=== PATIENT | male | born 1965 | race Caucasian/White ===

== ENCOUNTER 2019-05-20 05:15 | Inpatient (IN) | payer BC ==
[2019-05-20] VITALS (11 sets, daily range): BP systolic 107–138; BP diastolic 69–93
[~2019-05-20] VITALS: Ht 185.4 cm; Wt 115.7 kg
[~2019-05-20 05:15] MED LIST: LISINOPRIL30 MG ORAL
[2019-05-20] MEDS ORDERED: LR 1000ml 1,000 ML IVLG SCH (06:46)
--- NOTE | 2019-05-20 06:48 | Anethesia Preoperative Eval ---
Anesthesia Pre-op PMH/ROS General Date of Evaluation: May 20, 2019 Time of Evaluation: 07:31 Anesthesiologist: Dayanara ASA Score: ASA 3 Mallampati Score Class I : Soft palate, uvula, fauces, pillars visible Class II: Soft palate, uvula, fauces visible Class III: Soft palate, base of uvula visible Class IV: Only hard plate visible Mallampati Classification: Class III Surgeon: Alter Diagnosis: Hidden Penis Surgical Procedure: Suprapubic Drmatolipectomy and Tacking Anesthesia History: none Family History: no anesthesia problems Allergies: Coded Allergies: No Known Allergies (Unverified , 05/19/19) Medications: see eMAR Patient NPO?: Yes NPO Date: May 19, 2019 NPO Time: 2100 Past Medical History Cardiovascular: Reports: HTN Other: obesity - BMI 35 PSxH Narrative: Facial Reconstruction, R hand Tumor SX, Bilateral Shoulder Sx Anesthesia Pre-op Phys. Exam Physician Exam Last Vital Signs Date Time Temp Pulse Resp B/P (MAP) Pulse Ox O2 Delivery O2 Flow Rate FiO2 05/20/19 05:55 Room Air 05/20/19 05:50 97.5 76 18 132/81 (98) 100 Constitutional: NAD Neurologic: CN 2-12 intact Cardiovascular: RRR Respiratory: CTA Gastrointestinal: S/NT/ND Airway Exam Mallampati Score: Class III MO: full ROM: limited Teeth: intact Anesthesia Pre-op A/P Risk Assessment & Plan Assessment: ASA 3 Plan: GA, SED, GlideScope Go Status Change Before Surgery: No Pre-Antibiotics Dru Grams Ancef IV Given Within 1 Hr of Incision: Yes Time Given: 07:51 Claudy Nichole MD May 20, 2019 06:48
[2019-05-20] MEDS ORDERED: Rocuronium Bromide 50mg/5ml Inj IV ONE (06:50)
[2019-05-20] MEDS ORDERED: Lidocaine 1% MPF 10mg/ml 5ml ONE ×2 (06:53→12:19)
[2019-05-20] MEDS ORDERED: Lidocaine 1% Plain 30 ml INJ ONE ×4 (06:53→14:30)
[2019-05-20] MEDS ORDERED: Sodium Chloride 10ml vial INJ ONE (06:53)
[2019-05-20] MEDS ORDERED: Dexamethasone 4mg/ml vial ONE (06:53)
[2019-05-20] MEDS ORDERED: fentaNYL 100 mcg/2 mL ONE ×5 (06:54→14:37)
[2019-05-20] MEDS ORDERED: Ketamine 500mg Inj ONE (06:54)
[2019-05-20] MEDS ORDERED: Acetaminophen (Non formulary) 100 ML IV ONE (07:00)
[2019-05-20] MEDS ORDERED: Ketorolac 30mg Inj IV PRN ×4 (07:00→16:00)
[2019-05-20] MEDS ORDERED: Labetalol 5mg/ml 20ml vial IV PRN ×2 (07:00→16:00)
[2019-05-20] MEDS ORDERED: DiphenhydrAMINE 50mg/ml Inj IVP PRN ×3 (07:00→16:30)
[2019-05-20] MEDS ORDERED: Atropine Sulfate 0.4mg/ml inj IVP PRN ×2 (07:00→16:00)
[2019-05-20] MEDS ORDERED: oxyCODONE HCL/Acetaminophen 5/325mg ORAL PRN (07:00)
[2019-05-20] MEDS ORDERED: LORazepam Inj 2mg/ml 1ml IV PRN ×2 (07:00→16:00)
[2019-05-20] MEDS ORDERED: Meperidine 50mg/ml Inj(FOR RIGORS ONLY) IVP PRN ×2 (07:00→16:00)
[2019-05-20] MEDS ORDERED: Propofol 1,000mg/ 100ml btl IV ONE (07:00)
[2019-05-20] MEDS ORDERED: Hydromorphone 0.5mg/0.5ml inj IVP PRN ×2 (07:00→16:00)
[2019-05-20] MEDS ORDERED: HYDROcodone/Acetamin 5/325 tab ORAL PRN (07:00)
[2019-05-20] MEDS ORDERED: Midazolam 2mg/2ml Inj IVP PRN ×2 (07:00→16:00)
[2019-05-20] MEDS ORDERED: fentaNYL 100 mcg/2 mL IV PRN ×2 (07:00→16:00)
[2019-05-20] MEDS ORDERED: HYDROcodone/Acetamin 7.5/325 tab ORAL PRN (07:00)
[2019-05-20] MEDS ORDERED: Metoclopramide 10mg/2ml Inj IVP PRN ×2 (07:00→16:00)
[2019-05-20] MEDS ORDERED: Muri-Lube ONE (07:15)
[2019-05-20] MEDS ORDERED: EPINEPHrine 1mg/1ml Amp ONE (07:15)
[2019-05-20] MEDS ORDERED: NeoSporin Gu Irrig 1ml Amp IRRIG ONE (07:16)
[2019-05-20] MEDS ORDERED: Bacitracin 50000 Units Vial ONE (07:16)
[2019-05-20] MEDS ORDERED: Lidocaine 1% 10mg/ml/EPI 0.01mg/ml 50ml INJ ONE (07:16)
[2019-05-20] MEDS ORDERED: Bupivacaine w/Epi 0.5% 30ml Vial INJ ONE (07:16)
--- NOTE | 2019-05-20 07:29 | Pre-Procedure Note/Attestation ---
Pre-Procedure Note/Attestation Complete Prior to Procedure Planned Procedure: not applicable Procedure Narrative: Correction of buried penis and Release of scar tissue. Possible scrotal flaps. Correction of buried penis Indications for Procedure Pre-Operative Diagnosis: Buried penis Attestation I attest that I discussed the nature of the procedure; its benefits; risks and complications; and alternatives (and the risks and benefits of such alternatives ), prior to the procedure, with the patient (or the patient's legal sales representative electric service). I attest that, if there was a reasonable possibility of needing a blood transfusion, the patient (or the patient's legal sales representative electric service) was given the [facility] standardized written summary, pursuant to the Thee Se Blood Safety Act ([place] Health and Safety Code # 1645, as amended). I attest that I re-evaluated the patient just prior to the surgery and that there has been no change in the patient's H&P, except as documented below: Caden Cornelius MD May 20, 2019 07:29
[2019-05-20] MEDS ORDERED: NS Irrig 1000ml IRRIG ONE (08:00)
[2019-05-20] MEDS ORDERED: LR 1000ml IVLG ONE (08:00)
--- NOTE | 2019-05-20 08:10 | Immediate Post-Op Evaluation ---
Immediate Post-Op Evalulation Immediate Post-Op Evalulation Procedure: Suprapubic Dermatolipectomy And Tacking Date of Evaluation: May 20, 2019 Time of Evaluation: 16:47 IV Fluids: 1600 LR Blood Products: 0 Estimated Blood Loss: 100 Urinary Output: 600 Blood Pressure Systolic: 127 Blood Pressure Diastolic: 79 Pulse Rate: 91 Respiratory Rate: 16 O2 Sat by Pulse Oximetry: 100 Temperature (Fahrenheit): 98 Pain Score (1-10): 2 Nausea: No Vomiting: No Complications 0 Patient Status: awake, reacts, patent, extubated, none Hydration Status: adequate Dru Gram Ancef IV Given Within 1 Hr of Incision: Yes Time Given: 07:51 Claudy Nichole MD May 20, 2019 08:10
--- NOTE | 2019-05-20 08:10 | 48 Hour Post Anesthesia Eval ---
Post Anesthesia Evaluation Procedure: Suprapubic Dermatolipectomy And Tacking Date of Evaluation: May 20, 2019 Airway: patent Nausea: No Vomiting: No Pain Intensity: 2 Hydration Status: adequate Cardiopulmonary Status: Stable Mental Status/LOC: patient returned to baseline Follow-up Care/Observations: 0 Post-Anesthesia Complications: 0 Follow-up care needed: ready to discharge Claudy Nichole MD May 20, 2019 08:10
--- NOTE | 2019-05-20 09:04 | NUR ---
CASE MANAGEMENT: REVIEW 53 YR OLD MALE HERE FOR ELECTIVE SURGERY SI: HIDDEN PENIS 97.5 76 18 132/81 100% RA IS:TO SURGERY- EXPLORATION OF PENIS WITH POSSIBLE RELEASE : CURRENTLY IN SURGERY
[2019-05-20] MEDS ORDERED: Neostigmine 1mg/ml 10ml Inj ONE (11:05)
[2019-05-20] MEDS ORDERED: Glycopyrrolate 0.2mg/ml 1ml Vial ONE (11:05)
[2019-05-20] MEDS ORDERED: Propofol 200mg/20ml IV ONE (14:30)
[2019-05-20] MEDS ORDERED: Phenylephrine 10mg/ml Vial ONE (15:05)
[2019-05-20] MEDS ORDERED: Naloxone 0.4mg/ml Inj IVP PRN (16:30)
[2019-05-20] MEDS ORDERED: PCA Education Pamphlet MISC ONE (16:30)
[2019-05-20] MEDS ORDERED: LORazepam 1mg tab ORAL PRN (16:30)
[2019-05-20] MEDS ORDERED: Rate Change PCA 1 Each MISC PRN (16:30)
[2019-05-20] MEDS ORDERED: PCA HYDROmorphone 1mg/ml 30 ML IV PRN (16:30)
[2019-05-20] MEDS ORDERED: HYDROcodone/Acetamin 10/325 tab ORAL PRN (16:45)
--- NOTE | 2019-05-20 16:46 | Operative Note - PDOC ---
Operative Note Operative Note Date of Operation/Procedure: May 20, 2019 Chief Complaint: Buried penis Pre-op Diagnosis: Buried penis Procedure: Correction of buried penis, Lysis of fibrotic adhesions, penile plication, penoscrotal transposition flaps Post-op Diagnosis: Same plus dorsal penile curvature Post-op Diagnosis: same as pre-op plus - dorsal penile curvature Surgeon: Caden Cornelius Anesthesia: general Specimen: none Complications: none Condition: stable Estimated Blood Loss: minimal Drains: KISHAN Implant(s) used?: No Caden Cornelius MD May 20, 2019 16:46
--- NOTE | 2019-05-20 17:45 | NUR ---
NURSE NOTES: REC'D FROM PACU SP CORRECTION OF BURIED PENIS,LYSIS OF FIBROTIC ADHESION,PENILE PLICATION PENUSCROTAL TRANSPOSITION FLAP. AWAKE/ALERT. PENILE DRESSING DRY AND INTACT. ICE PACK ON.F/C IN PLACE DRAINING YWLLOW URINE. KISHAN IN PLACE DRAINING SEROUS DRAINAGE. IVF INFUSING. V/S TAKEN. PAIN SCALE 3-4/10. ON LODGING MANAGER DILAUDID. INSTRUCTED TO PUSH PAIN BUTTON NEEDED FOR PAIN. IN NO DISTRESS.
--- NOTE | 2019-05-20 18:41 | NUR ---
NURSE NOTES: Spoke to regarding home medication and new order received. Order read back and carried out.
[2019-05-20] MEDS ORDERED: D5 1/2NS w/KCl 20mEq 1,000 ML IV SCH (19:00)
--- NOTE | 2019-05-20 19:00 | NUR ---
NURSE NOTES: QUIET IN BED. IN NO APPARENT DISTRESS.
[2019-05-20] MEDS: PCA shift volume MISC SCH (19:25)
--- NOTE | 2019-05-20 19:25 | NUR ---
NURSE NOTES: Report taken from GURDEEP Hutchins. Patient is awake and in bed, family at bedside. A&Ox4. No signs of distress on room air, N/C at bedside. Patient has personal CPAP machine. Skin intact, surgical site c/d/i, continue to monitor. site Lt Hand c/d/i and patent, running D51/2+20KCl @ 125mls/hr. Lyons draining to gravity, light yellow fluid. Bed in lowest position, call light within reach. Addendum: 05/21/19 at 0623 by Dylan Canchola RN Patient has KISHAN drain, RL Abdomen, draining serosangineous fluid.
--- NOTE | 2019-05-20 19:31 | NUR ---
HAND-OFF: Report given to Zeny SINGER RN.
[2019-05-20] MEDS ORDERED: ceFAZolin sod 1 GM in D5W 55 ML IV SCH (20:00)
[2019-05-20] MEDS: ceFAZolin sod 1 GM in D5W 55 ML IV SCH (22:46)
[2019-05-21] VITALS: BP 132/70
--- NOTE | 2019-05-21 | Operative Note - Dictated ---
DATE OF OPERATION: 05/20/2019 PREOPERATIVE DIAGNOSES: 1. 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 2. Probable dorsal penile skin insufficiency. POSTOPERATIVE DIAGNOSES: 1. 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 2. Probable dorsal penile skin insufficiency. 3. Dorsal penile curvature. OPERATION: 1. Release of severe scar contractures at the penile base extending throughout the dorsum of the penis. 2. Ventral penile plication. 3. Penopubic tacking. 4. Penile coverage with penoscrotal transposition flaps. SURGEON: Caden Cornelius M.D. ANESTHESIA: General. INDICATIONS: The patient is a 53-year-old male that had an Elist implant approximately 5 years ago. He subsequently got an infection with healing by secondary intention at the penopubic junction. The wound was open at the penopubic junction and healed over time. The patient states that his penile length was 5 to 6 inches prior to any surgery. However, now his penis is unusable and only 1 to 2 inches. Erections cause pain because of the scar tissue. Physical exam reveals some mild pubic ptosis. There is a transverse lower pubic scar. He has severe fibrosis extending from the pubic scar to the dorsal shaft of the penis. The penis is severely buried and cannot be pulled out more than an inch or so. There is question if the patient has adequate dorsal penile skin. He has adequate ventral penile skin. The patient was told that it is highly unlikely that he would regain his previous penile length. He was also told that penile coverage would very possibly be done with penoscrotal transposition flaps. OPERATION IN DETAIL: The patient was given general anesthesia. He was placed in supine position, prepped and draped in usual manner. The patient's previous transverse incision was almost completely excised. The incision was carried down to the very firm hard scar tissue. Scar tissue was then followed dorsally along the dorsum of the penile skin. It was very difficult to get a plane between the scar tissue and Mata fascia. At the penopubic junction, the scar tissue was cut and a plane was obtained from the Mata fascia. Blunt sharp dissection was then done to try to free up the scar tissue from the Mata fascia. This was able to be done until approximately the distal third of the penis. The scar was so intimately attached to the dorsal neurovascular bundles that was felt that any dissection to remove the tissue would very possibly injure the patient's dorsal nerves. The penis was freed laterally. There was a firm mass of Peyronie like tissue extending along the 10 to 2 o'clock position of the dorsum of the penis at approximately the distal two-third manju. As previously stated, this could not be dissected off the Mata fascia nerves because it was too firmly attached with no plane. Scoring was done into the scar tissue and some was removed as possible, but over the dorsal midline. Any further manipulation of this firm Peyronie like plaque would result in the possibility of neurovascular damage. The patient was given a pharmacologic erection with prostaglandin E1. This helped to further release of scar tissue at the penile base and laterally. It became very obvious that the patient's penile skin was not adequate for coverage of the released penis. Therefore, a circumcision incision was made approximately 1 cm in the subcoronal region. An incision was then made along the ventral midline of the penis from the circumcision line down to the mid scrotum. Blunt sharp dissection was done to free up all the penile skin and the scrotal skin. Examination of the penis revealed that the patient had a very significant approximately 45 degree upward curvature of the penis that would cause buckling and inability to have intercourse. Therefore, the decision was made to plicate ventrally to straighten out the penis. Blunt sharp dissection was then done just lateral to the urethra through the Mata fascia ventrally around the mid portion of the penis. The neurovascular bundle was then lifted off of the tunica ventrally on the right and left side just enough for plication. The patient still had a pharmacological erection. This was augmented with an infusion of saline into the cavernosal bodies through a butterfly in the glans into the corporal bodies. The patient's dorsal curvature was very noticeable and significant. 1 cm ellipses were then taken transversely around the proximal third of the penis to straighten the penis out. The plication was done without excising any tunica and was done with interrupted buried 2-0 Ethibond sutures. This was done both on the right and left side with the ellipses plicating approximately 1 cm to 1.5 cm on each side. Once the plications were done with multiple sutures, the patient's erection was checked and he had a very straight erection. He had a little bit of some hourglass deformity, but it was not significant enough. The patient's penis was now straight with a slight 10 degree upward curve. He had no significant buckling on infusion. The Mata fascia was then closed over the repair with running and interrupted 4-0 Vicryl sutures. Attempts were made to plicate the penopubic skin down to the pubic area with 0 Prolene sutures from the pubic area through the skin of the penopubic junction back to the pubic area. However, this resulted in too much of an upward angling of the penis, so these were removed. Blunt and sharp dissection was then done to Mata fascia at the 10 o'clock and 2 o'clock position. Nerves were avoided. However, there was severe fibrosis of the Mata fascia and the dissection was extremely difficult to get through the Mata fascia through tunica. This was done as far proximally as possible to give the patient a good penopubic junction. Two sutures of 2-0 Ethibond were then taken on each side at the 10 o'clock and then up to 2 o'clock positions. With a full erection, the sutures were then taken through the subdermal tissue at the penopubic junction, respectively at the 10 o'clock and 2 o'clock positions. Upon tying all 4 of the sutures, the patient's dorsal skin was well stabilized to the tunica to give the patient a good angle and good usable penile length. There was good fat and subcutaneous tissue between the pubic symphysis and the penis. This was then closed with interrupted 3-0 Vicryl sutures. There was inadequate penile skin to cover the shaft. It was estimated that the patient's erection was approximately 4.5 inches erect and straight. The penoscrotal skin was then transposed dorsally over the dorsal shaft of the penis to create a midline scar dorsally at the 12 o'clock position. Subcutaneous tissue was closed with some interrupted 4-0 Monocryl. The skin was closed with interrupted 4-0 Monocryl. The dog-ear proximally was excised. The skin was then draped from the ventral penis circumferentially along the thacker to cover the ventral penile shaft. Incisions were made at the penoscrotal junction on each side to transpose the skin and create a Z-plasty at the penoscrotal junction. Blunt and sharp dissection was then done at just lateral to the urethra at the penoscrotal junction on each side. Two sutures of 2-0 PDS were then placed at the penoscrotal junction just lateral to the urethra and the tunica on each side. The sutures were then placed through the proximal transposed penile skin respectively on each side to give the patient a good penoscrotal junction. The ventral skin was sutured from right to left to cover the ventral penile shaft. Care was taken to make sure that there was no significant tension and was done with the penis erect. Interrupted 4-0 Monocryls were placed through the subcutaneous tissue and interrupted 4-0 Monocryls were placed in the skin both along the ventral closure and along the circumcision line. The incision had to be carried all the way into the scrotum and excess dog-ears were removed along the midline of the scrotum. This was closed with some interrupted 4-0 Monocryl sutures. The patient now had coverage of the penis with an erect length of approximately 4.5 inches. A #15 Luciano-Johns drain was then placed in the pubic area out through a separate stab incision lateral to the incision. The superior flap of subcutaneous tissue was then tracked down to the pubic area to give a slight concavity with interrupted 0 Prolene sutures. The skin was then closed with intradermal 4-0 Monocryl sutures and the skin was closed with subcuticular sutures of 4-0 Monocryl. At the conclusion of the case, the patient had a straight erection measured about 4.5 inches in erect length. The skin flaps looked healthy, but slightly congested. The erection was reversed with the intracavernosal injection of phenylephrine. A DuoDERM dressings was placed on the penis. Steri-Strips was placed on the lower pubic incision. The patient tolerated the procedure well and left the operating room in good condition. Caden Cornelius M.D. DR: ISIS JOB#: [id number] CC: DEONTE
[2019-05-21 04:00] VITALS: BP 125/73
--- NOTE | 2019-05-21 06:20 | NUR ---
NURSE NOTES: Burleson removed by RN at 0610am per MD order. Instructed patient on use of urinal at bedside. Will endorse to day shift to assist patient with ambulation to bathroom. Total burleson output overnight, 1950cc
[2019-05-21] MEDS: PCA shift volume MISC SCH (07:05)
[2019-05-21] MEDS: ceFAZolin sod 1 GM in D5W 55 ML IV SCH (07:23)
--- NOTE | 2019-05-21 07:27 | NUR ---
HAND-OFF: Report given to GURDEEP Hutchins. patient is awake and in bed, advanced diet to regular for breakfast.
--- NOTE | 2019-05-21 07:30 | NUR ---
NURSE NOTES: AWAKE/ALERT. PAIN SCALE 5/10. PENILE DRESSING DRY AND INTACT. ICE PACK ON . IN NO DISTRESS.
[2019-05-21 08:00] VITALS: BP 131/77
[2019-05-21 08:34] VITALS: BP 131/77
[2019-05-21] MEDS ORDERED: Lisinopril 10mg tab ORAL SCH (09:00)
--- NOTE | 2019-05-21 10:00 | NUR ---
NURSE NOTES: PT INSTRUCTED HOW TO EMPTY AND RECORD KISHAN OUTPUT.
--- NOTE | 2019-05-21 10:52 | NUR ---
NURSE NOTES: DISCHARGED HOME PER WHEELCHAIR ACCPD BY BROTHER IN STABLE CONDITION. DC INSTRUCTIONS GIVEN
--- NOTE | 2019-05-21 15:51 | NUR ---
*-* INSURANCE *-* ALL CLINICALS AND REVIEWS HAVE BEEN FAXED TO: [facility] OF STATE DATES APPROVED 05/20-05/27/19 CLERK OF SCALES: LOWELL CALHOUN P:[phone] F:[phone] FAX CLINICALS
--- NOTE | 2019-05-22 12:33 | Discharge Summary ---
Discharge Summary Hospital Course Date of Admission May 20, 2019 at 05:15 Date of Discharge May 21, 2019 at 11:00 Admitting Diagnosis buried penis Reason for Hospitalization: elective surgery HPI Lopez Pete is a 53 year old male who was admitted on May 20, 2019 at 05:15 for Hidden Penis Procedures s/p 05/20/[address] Cornelius 1. Release of severe scar contractures at the penile base extending throughout the dorsum of the penis. 2. Ventral penile plication. 3. Penopubic tacking. 4. Penile coverage with penoscrotal transposition flaps. Hospital Course status post surgery course of recovery uneventful initially IV fluids s/p perioperative antibiotics penile dressing dry and intact pain management was addressed , pain controlled hemodynamically stable patient initially with Lyons catheter, which discontinued in the morning after surgery patient was able to void without difficulties patient with KISHAN drain, output closely monitored; patient was taught how to care for KISHAN drain patient tolerated diet , IV fluids discontinued antiemetics were on board as needed blood pressure was managed with PABLO and remained stable bowel regimen instituted patient was stable for discharge discharge instructions provided follow up with surgeon in clinic as advised FINAL DIAGNOSES 1. 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 2. Probable dorsal penile skin insufficiency. 3. Dorsal penile curvature. 4. s/p Correction of buried penis, lysis of fibrotic adhesions, penile plication , penoscrotal transposition flaps Discharge Medications Continued Medications: Lisinopril* (Lisinopril*) 30 Mg Tablet 30 MG ORAL DAILY, TAB (This prescription has been renewed) Discharge Condition Upon Discharge: stable Discharge Disposition Patient was discharged home Discharge Instructions Discharge Instructions Special Instructions I have been assigned to complete a D/C Summary on this account. I was not involved in the patient management Sintia Watson NP May 22, 2019 12:33
== END 2019-05-21 11:00 | disposition home or self-care (01) | DRG 710 ==
LOC: SDSOVERFLO 05:15 → EDSTATUS 07:30 → 3E 17:43
PROC: 0VQS0ZZ Repair Penis, Open Approach (ICD-10-PCS; principal; 2019-05-20 07:30)
PROC: 0HXAXZZ Transfer Inguinal Skin, External Approach (ICD-10-PCS; principal; 2019-05-20 07:30)
PROC: 0VNSXZZ Release Penis, External Approach (ICD-10-PCS; principal; 2019-05-20 07:30)
DX: N48.83 Acquired buried penis (principal); N48.89 Other specified disorders of penis; Q55.61 Curvature of penis (lateral); Z98.890 Other specified postprocedural states
CPT/HCPCS: 36415; 86850; 86900; 86901; 87081; J0270; J2370; J2405; J2710